=== PATIENT | female | born 2000 | race Caucasian/White ===

== ENCOUNTER 2019-03-07 00:13 | Emergency (ER) | payer OTHER, SELFPAY ==
[2019-03-07 00:15] VITALS: BP 142/75; PULSE 104; RESP 18; TEMP 36.8; O2SAT 97; BMI 36.0
--- NOTE | 2019-03-07 00:19 | ED.RN ---
RN CALLED FOR EKG, NO OLD EKGS IN MUSE
--- NOTE | 2019-03-07 00:19 | ED.RN ---
RESPIRATORY THERAPY CONTACTED TO OBTAIN EKG FOR CHEST PAIN.
--- NOTE | 2019-03-07 01:24 | EKG12_ITS ---
Test Reason : CP Blood Pressure : / mmHG Vent. Rate : 085 BPM Atrial Rate : 085 BPM P-R Int : 142 ms QRS Dur : 080 ms QT Int : 360 ms P-R-T Axes : 044 061 010 degrees QTc Int : 428 ms Normal sinus rhythm Normal ECG Confirmed by ARIC DENTON, PAUL ([id number]), editor publications BRENDA MUÑOZ ([id number]) on 03/09/2019 12:27:06 PM Referred By: KRYSTEN Confirmed By:LAURA CORBETT MD
--- NOTE | 2019-03-07 01:25 | RAD_ITS ---
STUDY: X-RAY CHEST REASON FOR EXAM: Female, 18 years old. Chest pain and shortness of breath. TECHNIQUE: Frontal and lateral views of the chest. COMPARISON: None. FINDINGS: The lungs are clear and expanded. There is no demonstrated pleural abnormality. Normal size heart. Normal mediastinum and jimmy. Normal visualized pulmonary arteries. Normal visualized aortic arch and descending thoracic aorta. Normal visualized thoracic spine. Normal visualized ribs, clavicles, and shoulders. There is no demonstrated abnormality of the visualized soft tissue structures of the upper abdomen. RAD/Chest PA and Lateral IMPRESSION: Normal x-ray examination of the chest. Electronically Signed: Tito Peng MD at 2:02 EST , Service support ,
--- NOTE | 2019-03-07 01:28 | ED.VIS.GEN ---
History of Present Illness Chief Complaint: Chest Pain Informant: Patient Onset: Today Context: Sudden Onset Timing: Continuous Current Severity: Mild Maximum Severity: Moderate Narrative: Patient is a 18-year-old female with history of asthma, migraines and anxiety presenting after an episode of shortness of breath and chest pain. Patient states she was walking on campus when she suddenly started to feel short of breath and had pain in her chest. States is in the center of her chest and she describes as an aching and tightness. She has associated nausea. Patient states this feels different than her asthma exacerbations. The symptoms began to improve after about 5 minutes. Patient denies any other complaints at this time. She denies any recent swelling of her extremities. She denies any history of DVT or PE. Patient states is not currently on any control or estrogen supplements. She notes she is to be on nortriptyline and Naprosyn for migraines and hip pain respectively but is been off for the past month because she has got her prescription filled. Her last menstrual. Was 58 days ago. She states that she is a history of irregular menstrual cycles. Patient states she did feel nauseous but denies any associated vomiting or change in bowel habits. She denies any urinary symptoms. She denies any other complaints at this time. Past Medical History - Allergies and Home Meds Allergies/Adverse Reactions: Allergies No Known Allergies Allergy (Verified 03/07/19 00:14) Primary Care Physician: Ryan Rosas,Out of [NON-STAFF] - Prior records reviewed: Yes Past Medical History: - - Migraines, headache Surgical History: no surgical history Lives: Roommate Review of Systems General: Denies: Chills, Fever, Sweats Eyes: Denies: Visual changes - bilaterally, Diplopia ENT: Denies: Rhinorrhea, Sore throat Cardiovascular: Reports: Chest pain. Denies: Palpitations, Heart racing Respiratory: Reports: Dyspnea. Denies: Cough, Dyspnea on exertion Gastrointestinal: Reports: Nausea. Denies: Abdominal pain, Vomiting, Diarrhea, Melena, Hematochezia Genitourinary: Denies: Dysuria, Hematuria, Frequency Musculoskeletal: Denies: Back pain, Extremity Pain Skin: Denies: Rash, Wounds Neurological: Denies: Headache, Weakness, Numbness Physical Exam Vital Signs/Narrative: Vital Signs Temp Pulse Resp BP Pulse Ox 03/07/19 00:15 98.3 F 104 H 18 142/75 H 97 Inital Vital Signs reviewed: Yes General: Well nourished, Well developed, No Acute Distress Head: Normocephalic, Atraumatic Eyes: Perrl, EOMI ENT: Moist mucous membranes, No rhinorrhea Neck: Supple, Nontender Cardiovascular: Regular rate, Regular rhythm, No murmurs Respiratory: No distress, CTA bilaterally, Chest nontender. Negative for: Wheezing, Decreased Air Movement Abdomen: Soft, Nontender, Nondistended, Normal bowel sounds Back: Nontender, Normal Inspection Extremities: Nontender, No edema Skin: Normal color, No rash Neurological: Alert, Oriented x3, Cranial nerves II-XII grossly intact, Normal Strength, Normal Sensation Psychological: Normal affect, Normal Mood Diagnostic/Tx/Re-eval Chest X-Ray - ED: 2 View, Read by Radiologist, No Acute Disease Clinical Impression(s) from Imaging Studies Chest X-Ray 03/07/19 01:25 IMPRESSION: Normal x-ray examination of the chest. Electronically Signed: Tito Peng MD at 2:02 EST , Service support , Laboratory Data 03/07/19 03/07/19 03/07/19 01:41 01:41 02:05 WBC 9.0 RBC 4.82 Hgb 13.4 Hct 41.3 MCV 85.7 MCH 27.8 MCHC 32.4 RDW Std Deviation 45.2 H RDW Coeff of Lucas 14.6 Plt Count 278 MPV 10.6 Immature Gran % (Auto) 0.300 Neut % (Auto) 54.0 Lymph % (Auto) 36.3 Hemphill % (Auto) 7.9 Eos % (Auto) 0.8 Baso % (Auto) 0.7 Absolute Neuts (auto) 4.8 Absolute Lymphs (auto) 3.25 Nucleated RBC % 0 Sodium 140 Potassium 3.8 Chloride 109 H Carbon Dioxide 23.0 Anion Gap 8 BUN 13 Creatinine 0.71 Estim Creat Clear Calc 100.80 Est GFR (MDRD) Af Amer 135 Est GFR (MDRD) Non-Af 112 BUN/Creatinine Ratio 18.2 Glucose 99 Calcium 9.4 Total Bilirubin 0.30 AST 12 L ALT 19 Alkaline Phosphatase 113 Troponin I < 0.015 Total Protein 7.3 Albumin 3.7 Globulin 3.6 Albumin/Globulin Ratio 1.0 Lipase 100 Urine Test Negative - Rhythm Strip Rhythm Strip: Sinus Rhythm Ectopy: None - 85 - EKG Initial EKG Interpretation: Sinus Rhythm, - - Normal sinus rhythm at a rate of 85 Normal intervals Normal axis Normal ST segments - Medical Decision Making She is a 18-year-old female with no significant past medical history presenting with an episode of chest pain shortness of breath. She appears nontoxic in no acute distress. Vital signs are normal. Patient is PE RC negative. Chest pain is atypical and EKG/troponin is checked. These are both grossly normal. CMP, Lipase and CBC are also normal. Urine is negative. Lungs are clear. DO not suspect asthma exacerbation. Checks x-ray does not show any acute process. I am not sure exactly what caused her episode of chest pain and shortness of breath but her symptoms have resolved in the emergency room. She is well-appearing. I feel that she stable for outpatient follow-up. I do not suspect ACS. With a negative troponin I do not suspect myocarditis. EKG is normal I do not suspect pericarditis. Patient is counseled on signs and symptoms requiring return to the emergency room. Patient verbalizes agreement and understand this plan. Patient discharged home in stable and improved condition. ED Disposition - Plan for ED Patient: Disposition: Home or Assisted Living Diagnosis: Chest pain Instructions: CHEST PAIN, Uncertain Cause Referrals: Town Doctor,Out of [NON-STAFF] - Additional Instructions: Please follow-up with your primary care doctor or college physician in the next few days. Return to emergency room with worsening symptoms. The exact cause of your chest pain is not clear today but I do not suspect infection, heart attack, blood clot or other more serious causes and I feel that you are safe to go home.
[2019-03-07 01:52] LABS: Absolute Lymphocyte Count 3.25 X10^3/uL (0.83-4.51); Absolute Neutrophil Count 4.8 X10^3/uL (2.0-7.7); Basophil# 0.06 X10^3/uL; Basophil% 0.7 % (0-1); Eosinophil# 0.07 X10^3/uL; Eosinophils% 0.8 % (0-5); Hematocrit 41.3 % (37-47); Hemoglobin 13.4 g/dL (12.0-15.0); Lymphocyte # 3.25 X10^3/ul (4.0); Lymphocyte % 36.3 % (19-41); Mean Corp Hgb Conc 32.4 g/dL (32-36); Mean Corpuscular Hgb 27.8 pg (27.0-32.0); Mean Corpuscular Volume 85.7 fL (81-99); Mean Platelet Vol. 10.6 fl (6.2-12.0); Monocyte# 0.71 X10^3/uL; Monocyte% 7.9 % (0-10); NRBC Flagged by Analyzer 0 % (0-5); Neutrophil # 4.84 X10^3/uL (2.7-7.7); Platelet Count 278 K/mm3 (150-450); RBC Distribution Width CV 14.6 % (11.6-14.6); RBC Distribution Width SD 45.2 fl (35.1-43.9); Red Blood Count 4.82 M/mm3 (4.2-5.4)
[2019-03-07 02:08] LABS: AST(SGOT) 12 U/L (15-37); Alanine Aminotransfer ALT/SGPT 19 U/L (13-56); Albumin, Serum 3.7 g/dL (3.2-5.0); Alkaline Phosphatase 113 U/L (45-117); Anion Gap 8 (5-15); BUN 13 mg/dL (7-18); BUN/Creat Ratio 18.2 RATIO (10-20); Calcium,Total 9.4 mg/dL (8.5-10.1); Chloride 109 mmol/L (98-107); Creatinine, Serum 0.71 mg/dL (0.55-1.02); EST Glomerular Filtration Rate 112 mL/min (>60); Est Glom Filt Rate - Afr Amer 135 mL/min (>60); Globulin 3.6 g/dL (2.2-4.2); Glucose 99 mg/dL (74-106); Lipase 100 U/L (73-393); Potassium 3.8 mmol/L (3.5-5.1); Protein, Total 7.3 g/dL (6.4-8.2); Sodium Level 140 mmol/L (136-145)
[2019-03-07 02:20] LABS: Internal QC Validated? YES +Cl - CLEAR BKGD; Pregnancy, Urine Negative Negative
[2019-03-07 02:26] VITALS: BP 123/55; PULSE 96; RESP 21; O2SAT 99
[2019-03-07 03:58] VITALS: BP 119/70; PULSE 93; RESP 18; O2SAT 99
--- NOTE | 2019-03-07 04:00 | ED.RN ---
spoke with MARIA A Hernandez at [facility] [place] for pt update. called campus security for ride.
== END 2019-03-07 03:59 | disposition home or self-care (01) ==
PROVIDERS: Emergency Provider Emergency Medicine
DX: R07.9 Chest pain, unspecified (principal)
CPT/HCPCS: 71046; 80053; 81025; 83690; 84484; 85025; 93005; 99284